=== PATIENT | male | born 1975 | race Caucasian/White ===

== ENCOUNTER 2018-11-01 14:26 | Emergency (ER) | payer BC ==
--- NOTE | 2018-11-01 14:55 | EDM.PDOC ---
ED HPI GENERAL MEDICAL PROBLEM - General Chief Complaint: Lower Extremity Injury/Pain Stated Complaint: PAINFUL BLISTER ON FOOT Time Seen by Provider: 11/01/18 14:28 - History of Present Illness INITIAL COMMENTS - FREE TEXT/NARRATIVE: HISTORY AND PHYSICAL: History of present illness: Patient's a 42-year-old male history diabetes who presents with a concern of blister to his left heel that he noted when he took off his boot from work Saturday. He states there was some desquamated skin and a residual blister. No fever chills nausea vomiting or other complaints Review of systems: As per history of present illness and below otherwise all systems reviewed and negative. Past medical history: As per history of present illness and as reviewed below otherwise noncontributory. Surgical history: As per history of present illness and as reviewed below otherwise noncontributory. Social history: No reported history of drug or alcohol abuse. Family history: As per history of present illness and as reviewed below otherwise noncontributory. Physical exam: HEENT: Atraumatic, normocephalic, pupils reactive, negative for conjunctival pallor or scleral icterus, mucous membranes moist, throat clear, neck supple, nontender, trachea midline. Lungs: Clear to auscultation, breath sounds equal bilaterally, chest nontender. Heart: S1S2, regular, negative for clicks, rubs, or JVD. Abdomen: Soft, nondistended, nontender. Negative for masses or hepatosplenomegaly. Negative for costovertebral tenderness. Pelvis: Stable nontender. Genitourinary: Deferred. Rectal: Deferred. 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 Neurovascular exam is unremarkable Neuro: Awake, alert, oriented. Cranial nerves II through XII unremarkable. Cerebellum unremarkable. Motor and sensory unremarkable throughout. Exam nonfocal. Diagnostics: X-ray left foot Therapeutics: None Impression: #1 denuded blister left foot #2 history of diabetes Definitive disposition and diagnosis as appropriate pending reevaluation and review of above. Left Heel Pain Score (Numeric/FACES): 5 - Related Data Allergies Allergy/AdvReac Type Severity Reaction Status Date / Time No Known Allergies Allergy Verified 11/01/18 14:37 Home Meds: Home Meds Levothyroxine 25 mcg PO DAILY 08/02/18 [History] Lisinopril [Prinivil] 2.5 mg PO DAILY 08/02/18 [History] glipiZIDE [Glipizide] 5 gm MC DAILY 08/02/18 [History] metFORMIN [Glucophage] 1,000 mg PO WITHDINNER 08/02/18 [History] Past Medical History Endocrine/Metabolic History: Reports: Diabetes, Type II, Hypothyroidism - Infectious Disease History Infectious Disease History: Reports: Chicken Pox, Other (See Below) Other Infectious Disease History: polycythemia Social & Family History - Family History Family Medical History: Noncontributory - Tobacco Use Smoking Status *Q: Former Smoker Used Tobacco, but Quit: Yes Month/Year Tobacco Last Used: 15 - Caffeine Use Caffeine Use: Reports: Coffee - Recreational Drug Use Recreational Drug Use: No Review of Systems - Review of Systems Review Of Systems: ROS reveals no pertinent complaints other than HPI. ED EXAM, GENERAL - Physical Exam Exam: See Below (See dictated) Course - Vital Signs Last Recorded V/S: Last Vital Signs Temp 36.4 C 11/01/18 14:38 Pulse 102 H 11/01/18 14:38 Resp 18 11/01/18 14:38 BP 133/78 11/01/18 14:38 Pulse Ox 98 11/01/18 14:38 - Orders/Labs/Meds Orders: Active Orders 24 hr Category Date Time Status Foot 2V Lt [CR] Stat Exams 11/01/18 14:44 Ordered Departure - Departure Time of Disposition: 14:53 Disposition: Home, Self-Care 01 Condition: Good Clinical Impression: Foot injury, Diabetes - Discharge Information Referrals: PCP,None [Primary Care Provider] - Additional Instructions: The following information is given to patients seen in the emergency department who are being discharged to home. This information is to outline your options for follow-up care. We provide all patients seen in our emergency department with a follow-up referral. The need for follow-up, as well as the timing and circumstances, are variable depending upon the specifics of your emergency department visit. If you don't have a primary care physician on staff, we will provide you with a referral. We always advise you to contact your personal physician following an emergency department visit to inform them of the circumstance of the visit and for follow-up with them and/or the need for any referrals to a consulting specialist. The emergency department will also refer you to a specialist when appropriate. This referral assures that you have the opportunity for followup care with a specialist. All of these measure are taken in an effort to provide you with optimal care, which includes your followup. Under all circumstances we always encourage you to contact your private physician who remains a resource for coordinating your care. When calling for followup care, please make the office aware that this follow-up is from your recent emergency room visit. If for any reason you are refused follow-up, please contact the [facility] emergency department at and asked to speak to the emergency department charge nurse. [facility] Pod[facility] [address] [place] [phone] Fax: [phone] [facility] [address] [place] [id number] Follow-up podiatry and primary care is discussed wound care and foot care as discussed continue current medications and return as needed as discussed - My Orders Last 24 Hours: My Active Orders 11/01/18 14:44 Foot 2V Lt [CR] Stat - Assessment/Plan Last 24 Hours: My Active Orders 11/01/18 14:44 Foot 2V Lt [CR] Stat
--- NOTE | 2018-11-01 15:41 | CR ---
2 views of the left foot. INDICATION: Blister on heel. IMPRESSION: No fracture or signs for osteomyelitis. Chronic changes described below. FINDINGS: Previous amputation at the level of the 1st proximal phalanx. Plantar spur. Dorsal spurring is present at the talonavicular space. No conventional radiographic signs for osteomyelitis. Dictated by Teja Villela MD @ Nov 01 2018 3:39PM Signed by Dr. Teja Villela @ Nov 01 2018 3:41PM
== END 2018-11-01 15:31 | disposition home or self-care (01) ==
LOC: MW.ED 14:26
DX: S90.821A Blister (nonthermal), right foot, initial encounter (principal); E11.9 Type 2 diabetes mellitus without complications; E03.9 Hypothyroidism, unspecified; Z87.891 Personal history of nicotine dependence; Z79.84 Long term (current) use of oral hypoglycemic drugs; Z79.899 Other long term (current) drug therapy; X58.XXXA Exposure to other specified factors, initial encounter
CPT/HCPCS: 73620-26-LT; 73620-LT; 99283; 99283-25